=== PATIENT | male | born 1965 | race Hispanic/Latino ===

== ENCOUNTER 2017-01-03 11:52 | Emergency (ER) | payer MEDICARE ==
[2017-01-03 12:42] VITALS: BP 123/81
--- NOTE | 2017-01-03 14:17 | Emergency Department Report ---
Upper Extremity - HPI Upper Extremity: Left Shoulder Occurred When: 2 Days Mechanism: Fall Severity: severe Symptoms: Yes Pain with Movement, Yes Limited Range of Movement, No Deformity, No Numbness, No Weakness, No Swelling, No Bruising/Ecchymosis, No Laceration or Abrasion <RANDEE OSMAN - Last Filed: 01/06/17 08:44> <ANKIT PARKER - Last Filed: 01/07/17 06:56> - HPI Chief Complaint: Shoulder Injury Stated Complaint: LT SHOULDER PAIN /PREV INJURY Time Seen by Provider: 01/03/17 14:13 ED Review of Systems ROS: Stated complaint: LT SHOULDER PAIN /PREV INJURY Other details as noted in HPI Constitutional: denies: chills, fever Eyes: denies: eye pain, eye discharge, vision change ENT: denies: ear pain, throat pain Respiratory: denies: cough, shortness of breath, wheezing Cardiovascular: denies: chest pain, palpitations Endocrine: no symptoms reported Gastrointestinal: denies: abdominal pain, nausea, diarrhea Genitourinary: denies: urgency, dysuria Musculoskeletal: arthralgia, other (in complaining of trip and fall while working in the yard yesterday landing on left forearm and elbow sustaining left shoulder injury from this fall. Patient states he has injured this shoulder in the past. Patient denies any other injury.). denies: back pain, joint swelling Skin: denies: rash, lesions Neurological: denies: headache, weakness, paresthesias Psychiatric: denies: anxiety, depression Hematological/Lymphatic: denies: easy bleeding, easy bruising <RANDEE OSMAN - Last Filed: 01/06/17 08:44> ROS: Stated complaint: LT SHOULDER PAIN /PREV INJURY Other details as noted in HPI <ANKIT PARKER - Last Filed: 01/07/17 06:56> ED Past Medical Hx - Past Medical History Previous Medical History?: Yes Additional medical history: left shoulder injury and left shoulder rotator cuff pain - Surgical History Past Surgical History?: Yes Additional Surgical History: Left rotator cuff repair, Back surgery x 2 - Social History Smoking Status: Never Smoker Substance Use Type: Alcohol, Prescribed <RANDEE OSMAN - Last Filed: 01/06/17 08:44> <ANKIT PARKER - Last Filed: 01/07/17 06:56> - Medications Home Medications: Home Medications Medication Instructions Recorded Confirmed Last Taken Type HYDROcodone/APAP 5-325 [[place] 1 each PO Q4HR PRN #10 tablet 01/03/17 Unknown Rx 5/325] Ibuprofen [Motrin] 800 mg PO Q8HR PRN #15 tablet 01/03/17 Unknown Rx Upper Extremity Exam - Exam General: Vital signs noted. No distress. Alert and acting appropriately. Head and Torso: No HEENT Abnormality, No Neck Tenderness, No Chest/Lungs Abnormality, No Abdominal Tenderness, No Back Tenderness Shoulder Exam: Yes Shoulder Tenderness, Yes Clavicle Tenderness, Yes AC Joint Tenderness, No Normal Range of Motion in Shoulder, No Shoulder Deformity Arm Exam: No Arm/Humerus Tenderness, No Arm Deformity Elbow: No Elbow Tenderness, No Normal Range of Motion in Elbow, No Elbow Deformity Forearm: No Forearm Tenderness, No Forearm Deformity, No Pain with Pronation, No Pain with Supination Wrist: No Wrist Tenderness, No Normal ROM in Wrist, No Wrist Deformity, No Snuffbox Tenderness, No Pain with Axial Thumb Compression Hand: Yes Normal ROM in Digit(s), No Hand Tenderness, No Hand Deformity, No Digit Tenderness, No Digit(s) Deformity, No Tendon Dysfunction CMS Exam: Yes Normal Distal Pulses, Yes Normal Capillary Refill, Yes Normal Distal Sensation, No Broken Skin <RANDEE OSMAN - Last Filed: 01/06/17 08:44> - Exam General: Vital signs noted. No distress. Alert and acting appropriately. <ANKIT PARKER - Last Filed: 01/07/17 06:56> ED Course Vital Signs 01/03/17 12:38 Temperature 98.3 F Pulse Rate 100 H Respiratory 20 Rate Blood Pressure 123/81 O2 Sat by Pulse 97 Oximetry <RANDEE OSMAN - Last Filed: 01/06/17 08:44> Vital Signs 01/03/17 12:38 Temperature 98.3 F Pulse Rate 100 H Respiratory 20 Rate Blood Pressure 123/81 O2 Sat by Pulse 97 Oximetry <ANKIT PARKER - Last Filed: 01/07/17 06:56> ED Medical Decision Making - Radiology Data Radiology results: report reviewed (left shoulder xray: Osteoarthritis) <ANKIT PARKER - Last Filed: 01/07/17 06:56> Critical care attestation.: If time is entered above; I have spent that time in minutes in the direct care of this critically ill patient, excluding procedure time. <RANDEE OSMAN - Last Filed: 01/06/17 08:44> Critical care attestation.: If time is entered above; I have spent that time in minutes in the direct care of this critically ill patient, excluding procedure time. <ANKIT PARKER - Last Filed: 01/07/17 06:56> ED Disposition Is pt being admited?: No <RANDEE OSMAN - Last Filed: 01/06/17 08:44> <ANKIT PARKER - Last Filed: 01/07/17 06:56> Disposition: DISCHARGED TO HOME OR SELFCARE Condition: Stable Instructions: Acromioclavicular Separation (ED) Prescriptions: HYDROcodone/APAP 5-325 [[place] 5/325] 1 each PO Q4HR PRN #10 tablet PRN Reason: Pain Ibuprofen [Motrin] 800 mg PO Q8HR PRN #15 tablet PRN Reason: Pain Referrals: PRIMARY CAREMD [Primary Care Provider] - 3-5 Days SEAN ALSTON MD [Staff Physician] - 3-5 Days Forms: Work/School Release Form(ED)
--- NOTE | 2017-01-03 14:25 | XRay Report ---
LEFT SHOULDER: History: Left shoulder injury, pain. Routine views demonstrate normal bony and soft tissue structures with normal joint alignment of the shoulder. Mild osteoarthritic changes are noted. IMPRESSION: Osteoarthritis. No acute process.
== END 2017-01-03 14:48 | disposition home or self-care (01) ==
LOC: ED 11:52
DX: S49.82XA Other specified injuries of left shoulder and upper arm, initial encounter (principal); W19.XXXA Unspecified fall, initial encounter; Y93.89 Activity, other specified; Y99.8 Other external cause status; Y92.096 Garden or yard of other non-institutional residence as the place of occurrence of the external cause